=== PATIENT | male | born 1970 | race Caucasian/White ===

== ENCOUNTER 2024-05-27 09:57 | Day surgery (SDC) | payer BC ==
[2024-05-26 10:48] VITALS: BMI 30.4
[2024-05-27] MEDS ORDERED: Bupivacaine PF 0.5% 30 ML VIAL ONE (10:44)
[2024-05-27] MEDS ORDERED: PROPOFOL 0 ML ONE (11:31)
[2024-05-27] MEDS ORDERED: Fentanyl 100 MCG/2 ML VIAL ONE ×4 (11:31→15:47)
[2024-05-27] MEDS ORDERED: Ondansetron PF 4 MG/2 ML Vial ONE (11:32)
[2024-05-27] MEDS ORDERED: PROPOFOL 20 ML ONE (11:32)
[2024-05-27] MEDS ORDERED: Dexamethasone 20 MG/5 ML VIAL ONE (11:32)
[2024-05-27] MEDS ORDERED: Lidocaine 1% PF 5 ML VIAL ONE (11:32)
[2024-05-27] MEDS ORDERED: Lidocaine 2% PF 5 ML VIAL ONE (11:33)
[2024-05-27] MEDS ORDERED: CEFAZOLIN 2 GM VIAL ONE (11:56)
[2024-05-27] MEDS ORDERED: Promethazine HCl 25 MG/ML VIAL IM PRN (12:00)
[2024-05-27] MEDS ORDERED: Ropivacaine 0.2% 550 ML 550 ML NERVE BLCK SCH (12:00)
[2024-05-27] MEDS ORDERED: Ondansetron PF 4 MG/2 ML Vial IVP PRN (12:00)
[2024-05-27] MEDS ORDERED: Zolpidem Tartrate 5 MG TAB PO PRN (12:00)
[2024-05-27] MEDS ORDERED: ePHEDrine Sulfate 50 MG/10 ML VIAL ONE (12:29)
== END 2024-05-27 17:15 | disposition home or self-care (01) ==
LOC: CSHSDC 09:57
PROVIDERS: ATTEND Podiatrist Foot & Ankle Surgery
PROC: 0SGM0JZ Fusion of Right Metatarsal-Phalangeal Joint with Synthetic Substitute, Open Approach (ICD-10-PCS; principal; 2024-05-27)
PROC: 0LNV0ZZ Release Right Foot Tendon, Open Approach (ICD-10-PCS; principal; 2024-05-27)
DX: T84.84XA Pain due to internal orthopedic prosthetic devices, implants and grafts, initial encounter (principal); M19.071 Primary osteoarthritis, right ankle and foot; M20.11 Hallux valgus (acquired), right foot; M20.5X1 Other deformities of toe(s) (acquired), right foot; Z79.1 Long term (current) use of non-steroidal anti-inflammatories (NSAID); Y83.1 Surgical operation with implant of artificial internal device as the cause of abnormal reaction of the patient, or of later complication, without mention of misadventure at the time of the procedure
CPT/HCPCS: A4306; C1713; C1769; J0665; J1100; J2405; J2704; J2795; J3010